=== PATIENT | female | born 1980 | race Caucasian/White ===

== ENCOUNTER 2017-06-23 12:44 | Outpatient (CLI) | payer MEDICAID ==
--- NOTE | 2017-06-23 13:39 | Mammography Report ---
DIGITAL BILATERAL DIAGNOSTIC MAMMOGRAM: 06/23/2017 CLINICAL INDICATION: Followup right breast calcifications, bilateral lateral breast pain. TECHNIQUE: Bilateral CC, MLO, true lateral views, right spot magnification views. The patient describ ed the pain as throughout the lateral half of each breast, so no markers were placed. COMPARISON: 10/07/2016, 03/20/2016. FINDINGS: The breasts again demonstrate heterogeneously dense fibroglandular parenchyma bilaterally. The calcifications in question, in the right upper outer quadrant, remain punctate on spot magnifica tion views. No developing pleomorphism is seen. No suspicious masses or regions of architectural dist ortion are identified. IMPRESSION: PROBABLE BENIGN CALCIFICATIONS. RECOMMENDATION: DIAGNOSTIC RIGHT MAMMOGRAM IN SIX MONTHS, TO ASSURE STABILITY. BIRADS CATEGORY 3-PROBABLE BENIGN FINDINGS. STANDARD QUALIFYING STATEMENTS 1. This examination was reviewed with the aid of Computer-Aided Detection (CAD). 2. A negative or benign imaging report should not delay biopsy if clinically suspicious findings are present. Consider surgical consultation if warranted. More than 5% of cancers are not identified by i maging. 3. Dense breasts may obscure an underlying neoplasm. JOB #: [id number] EXT JOB #:[id number]
== END 2017-06-23 12:45 | disposition home or self-care (01) ==
LOC: DI 12:44
PROVIDERS: ATTEND Family Medicine
DX: R92.1 Mammographic calcification found on diagnostic imaging of breast (principal)
CPT/HCPCS: 77066

== ENCOUNTER 2018-01-12 12:53 | Outpatient (CLI) | payer MEDICAID ==
--- NOTE | 2018-01-12 14:19 | Mammography Report ---
DIAGNOSTIC RIGHT MAMMOGRAM: 01/12/2018 CLINICAL INDICATION: Followup calcifications. TECHNIQUE: Right CC, MLO, true lateral, spot magnification views. COMPARISON: 06/23/2017, 10/07/2016, 03/20/2016. FINDINGS: The right breast again demonstrates heterogeneously dense fibroglandular parenchyma. The calcifications in question, in the right upper outer quadrant, remain punctate on spot magnification views. No developing pleomorphism is seen. Other punctate, typically benign calcifications are stable. IMPRESSION: PROBABLE BENIGN CALCIFICATIONS. RECOMMENDATION: Diagnostic bilateral mammogram in 6 months, to complete 2 years of surveillance. BIRADS CATEGORY 3 - PROBABLE BENIGN FINDINGS. STANDARD QUALIFYING STATEMENTS: 1. This examination was reviewed with the aid of Computer-Aided Detection (CAD). 2. A negative or benign imaging report should not delay biopsy if clinically suspicious findings are present. Consider surgical consultation if warranted. More than 5% of cancers are not identified by imaging. 3. Dense breasts may obscure an underlying neoplasm. TD: 01/12/2018 14:18
== END 2018-01-12 12:54 | disposition home or self-care (01) ==
LOC: DI 12:53
PROVIDERS: ATTEND Family Medicine
DX: R92.1 Mammographic calcification found on diagnostic imaging of breast (principal)

== ENCOUNTER 2018-10-27 09:01 | Outpatient (CLI) | payer MEDICAID ==
--- NOTE | 2018-10-27 15:27 | Mammography Report ---
Reason: SIX MONTH FOLLOW UP FOR CALCIFICATIONS Procedure Date: 10/27/2018 Accession Number: [id number] / [id number] Procedure: KORY - Diagnostic Dig Bilat CPT Code: FULL RESULT: EXAM: Diagnostic Dig Bilat DATE: 10/27/2018 10:17 AM CLINICAL HISTORY: Diagnostic mammogram. Follow-up of right breast calcifications. TECHNIQUE: Bilateral CC and MLO views were obtained. The right breast was also imaged and ML position and right spot magnified CC and MLO views were obtained. COMPARISON: 01/12/2018 through 03/20/2016. FINDINGS: The breasts demonstrate heterogeneously dense fibroglandular parenchyma bilaterally. The calcifications under surveillance in the right upper outer quadrant remain punctate without increasing architectural distortion or development of an associated mass when accounting for differences in technique, probably benign. No increasing pleomorphism is identified. No suspicious mass, left breast calcifications or architectural distortion is identified. IMPRESSION: Probable benign findings RECOMMENDATION: Recommend diagnostic right mammogram in 6 months. BIRADS CATEGORY 3 STANDARD QUALIFYING STATEMENTS: 1. This examination was not reviewed with the aid of Computer-Aided Detection (CAD). 2. A negative or benign imaging report should not delay biopsy if clinically suspicious findings are present. Consider surgical consultation if warrented. More than 5% of cancers are not identified by imaging. 3. Dense breasts may obscure an underlying neoplasm. 4. This examination was reviewed with the aid of 3D imaging (tomography).
== END 2018-10-27 09:02 | disposition home or self-care (01) ==
LOC: DI 09:01
PROVIDERS: ATTEND Family Medicine
DX: N64.89 Other specified disorders of breast (principal)
CPT/HCPCS: 77066

== ENCOUNTER 2019-11-17 13:15 | Outpatient (CLI) | payer MEDICAID ==
--- NOTE | 2019-11-17 15:52 | Mammography Report ---
Reason: 6 MONTH F U DIAGNOSTIC MAMMO Procedure Date: 11/17/2019 Accession Number: [id number] / [id number] Procedure: KORY - Diagnostic Dig Bilat CPT Code: Final Report FULL RESULT: EXAM: Diagnostic Dig Bilat DATE: 11/17/2019 2:08 PM CLINICAL HISTORY: Diagnostic examination. Follow-up right breast calcifications. TECHNIQUE: (B) - Bilateral CC and MLO views were obtained. Right spot magnified CC and right spot magnified ML images are obtained. COMPARISON: 10/27/2018 through 03/20/2016. PARENCHYMAL PATTERN: (D) - The breast(s) demonstrate(s) heterogeneously dense fibroglandular parenchyma. FINDINGS: Spot magnified images of the right breast axillary tail region focused on the previously followed grouping of calcification demonstrate no suspicious interval change, long-term stability, typically benign. There are no suspicious masses, calcifications, or areas of distortion. IMPRESSION: Benign findings. BI-RADS category 2. RECOMMENDATION: (ANNUAL) - Recommend routine annual screening mammography. BI-RADS CATEGORY: (2) - Benign Findings. STANDARD QUALIFYING STATEMENTS: 1. This examination was not reviewed with the aid of Computer-Aided Detection (CAD). 2. A negative or benign imaging report should not preclude biopsy if clinically suspicious findings are present. 3. Dense breasts may obscure an underlying neoplasm. 4. This examination was reviewed with the aid of 3D breast imaging (tomosynthesis).
== END 2019-11-17 13:16 | disposition home or self-care (01) ==
LOC: DI 13:15
PROVIDERS: ATTEND Family Medicine
DX: N63.10 Unspecified lump in the right breast, unspecified quadrant (principal); R92.8 Other abnormal and inconclusive findings on diagnostic imaging of breast
CPT/HCPCS: 77066

== ENCOUNTER 2020-11-11 11:12 | Emergency (ER) | payer MEDICAID ==
--- NOTE | 2020-11-11 11:45 | ED Physician Documentation ---
PD HPI LOWER EXT INJURY - Stated complaint Stated Complaint: RT KNEE PX, BRUISING - Chief complaint Chief Complaint: Ext Problem - History obtained from History obtained from: Patient - Additional information Additional information: Earlier last week she fell while running, she was distracted by something and kind of stepped off the pavement inverting her left ankle and landing on her right knee. She has persistent pain especially of the knee. 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 - Present Medications Home Medications: Ambulatory Orders Medication Instructions Recorded Confirmed Ibuprofen [Motrin] 400 mg PO Q8H PRN 11/11/20 11/11/20 - Allergies Allergies/Adverse Reactions: Allergies Allergy/AdvReac Type Severity Reaction Status Date / Time codeine Allergy Unknown Verified 11/11/20 11:21 - Social History Does the pt smoke?: No Smoking Status: Never smoker Does the pt drink ETOH?: Yes ETOH Use: Wine Does the pt have substance abuse?: Yes Substance Use and Type: Marijuana - Immunizations Immunizations are current?: Yes - POLST Patient has POLST: No PD ED PE NORMAL - Vitals Vital signs reviewed: Yes - General General: Alert and oriented X 3, No acute distress - HEENT HEENT: PERRL, EOMI - Neck Neck: No bony TTP - Extremities Extremities: Other (see MDM - txt box too small) - Neuro Neuro: Alert and oriented X 3, Normal speech - Psych Psych: Normal mood, Normal affect Results - Vitals Vitals: Vital Signs - 24 hr 11/11/20 11:17 Temperature 36.5 C Heart Rate 73 Respiratory 16 Rate Blood Pressure 153/72 H O2 Saturation 99 Oxygen O2 Source Room air - Rads (name of study) X-rays of the right knee and left ankle Radiology: EMP read contemporaneously (Mild medial compartment osteoarthritis of the right knee, no fractures) PD MEDICAL DECISION MAKING - ED course ED course: Ecchymosis with a small abrasion over the anterior part of the right knee with mild tenderness at the insertion of the quadricep onto the patella. There is small effusion. No laxity of the ACL, PCL, LCL, MCL. Negative grind testing. Quadricep function is normal. She also has bruising about the left ankle and dependent into the foot. She is tender over both malleoli of the left ankle. Departure - Departure Disposition: 01 Home, Self Care Clinical Impression: Left ankle sprain Qualifiers: Involved ligament of ankle: anterior talofibular ligament Right knee sprain Qualifiers: Encounter type: initial encounter Involved ligament of knee: unspecified ligament Qualified Code(s): S83.91XA - Sprain of unspecified site of right knee, initial encounter Condition: Stable Record reviewed to determine appropriate education?: Yes Instructions: ED Sprain Knee, ED Sprain Ankle W X Ray Comments: Follow-up with your doctor if not better in a week. Return for new or worsening symptoms. Tylenol or ibuprofen as needed for pain.
--- NOTE | 2020-11-11 12:14 | XRAY Report ---
PROCEDURE: Knee 4 View RT INDICATIONS: knee/ankle inj TECHNIQUE: 4 views of the right knee(s) were acquired. COMPARISON: None. FINDINGS: Bones: No fractures or dislocations. Mild medial femoral tibial compartment osteoarthritis is seen. No suspicious bony lesions. Soft tissues: No joint effusion. No suspicious soft tissue calcifications. IMPRESSION: No acute right knee fracture or dislocation. Mild medial femoral tibial compartment oste oarthritis. No significant joint effusion. Reviewed by: Angel Lam MD on 11/11/2020 12:13 PM PST Approved by: Angel Lam MD on 11/11/2020 12:13 PM PST Station ID: [id number]
--- NOTE | 2020-11-11 12:15 | XRAY Report ---
PROCEDURE: Ankle 3 View LT INDICATIONS: knee/ankle inj TECHNIQUE: 3 views of the ankle were acquired. COMPARISON: None FINDINGS: Bones: No fractures or dislocations. Ankle mortise is normally aligned. No suspicious bony lesions . Soft tissues: No tibiotalar joint effusion. Achilles tendon appears normal. Mild ankle soft tissue swelling is noted. IMPRESSION: No gross acute ankle fracture or dislocation. Ankle mortise is intact. Mild ankle soft t issue swelling. Reviewed by: Angel Lam MD on 11/11/2020 12:13 PM PST Approved by: Angel Lam MD on 11/11/2020 12:13 PM PST Station ID: [id number]
[2020-11-11 12:35] VITALS: BP 131/73
== END 2020-11-11 12:44 | disposition home or self-care (01) ==
LOC: ED 11:12
DX: S83.91XA Sprain of unspecified site of right knee, initial encounter (principal); S93.492A Sprain of other ligament of left ankle, initial encounter; S80.01XA Contusion of right knee, initial encounter; S80.211A Abrasion, right knee, initial encounter; S90.02XA Contusion of left ankle, initial encounter; W01.0XXA Fall on same level from slipping, tripping and stumbling without subsequent striking against object, initial encounter; Y93.02 Activity, running; Y92.480 Sidewalk as the place of occurrence of the external cause; M17.11 Unilateral primary osteoarthritis, right knee
CPT/HCPCS: 99283

== ENCOUNTER 2021-02-14 10:28 | Outpatient (CLI) | payer MEDICAID ==
--- NOTE | 2021-02-14 11:37 | XRAY Report ---
PROCEDURE: Cervical Spine 2 View INDICATIONS: NECK PAIN TECHNIQUE: 3 view(s) of the cervical spine were acquired. COMPARISON: None. FINDINGS: Straightening of the normal lordotic curvature. Moderate narrowing of the C4-C5 and C5-C6 disc spaces . Multilevel spondylytic/degenerative endplate changes. Diffuse facet arthropathy. Soft tissues: No prevertebral soft tissue swelling. IMPRESSION: Straightening of the normal cervical lordosis and multilevel moderate spondylosis, and f acet arthropathy. Reviewed by: Levar Leon MD on 02/14/2021 11:35 AM PDT Approved by: Levar Leon MD on 02/14/2021 11:35 AM PDT Station ID: [id number]
== END 2021-02-14 10:29 | disposition home or self-care (01) ==
LOC: DI 10:28
PROVIDERS: ATTEND Family Medicine
DX: M47.812 Spondylosis without myelopathy or radiculopathy, cervical region (principal)

== ENCOUNTER 2021-03-20 09:13 | Outpatient (CLI) | payer MEDICAID ==
--- NOTE | 2021-03-21 11:57 | Ultrasound Report ---
LIMITED ULTRASOUND OF RIGHT BREAST: 03/20/2021 CLINICAL: Palpable right breast lump. Comparison is made to exams dated: 03/20/2021 mammogram, 11/17/2019 mammogram, 10/27/2018 mammogram, 12/17 mammogram, 06/23/2017 mammogram, and 10/07/2016 mammogram - [facility]. Color flow ultrasound of the right breast 9 o'clock region was performed. Garg scale images of the r eal-time examination were reviewed. There is a 2.7 cm x 2.4 cm x 1.9 cm oval cyst in the right breast at 9 o'clock middle depth 4 cm from the nipple. This oval cyst is anechoic with posterior acoustic enhancement. This correlates as pal pated and with mammography findings. Color flow imaging demonstrates that there is no vascularity pr esent. IMPRESSION: BENIGN There is no sonographic evidence of malignancy. The 2.7 cm cyst in the right breast is consistent with a simple cyst and is benign. Return to annual mammogram screening schedule is recommended. Findings and recommendations were conveyed to the patient at time of exam. This exam was interpreted at Station ID: [id number]. Electronically Signed By: Puja vines/:03/20/2021 10:52:52 Ultrasound BI-RADS: 2 Benign BI-RADS CATEGORY: (2) - 2 RECOMMENDATION: (ANNUAL) - Recommend routine annual screening mammography. [id number] return to screening LATERALITY: (B)
--- NOTE | 2021-03-21 11:57 | Mammography Report ---
BILATERAL DIGITAL DIAGNOSTIC MAMMOGRAM 3D/2D: 03/20/2021 CLINICAL: Palpable right breast lump. Comparison is made to exams dated: 11/17/2019 mammogram, 10/27/2018 mammogram, 01/12/2018 mammogram, 06/23/2017 mammogram, 10/07/2016 mammogram, and 03/20/2016 mammogram - [facility]. The t issue of both breasts is extremely dense, which lowers the sensitivity of mammography. There is a 1.9 cm round equal density asymmetry with a circumscribed margin in the right breast at 9 o'clock anterior depth. This is seen in additional views. This is more prominent. Several other ci rcumscribed asymmetries are present in the breasts and are stable. No other significant masses, calcifications, or other findings are seen in either breast. IMPRESSION: INCOMPLETE: NEEDS ADDITIONAL IMAGING EVALUATION The 1.9 cm round equal density asymmetry in the right breast most likely is a cyst or a fibroadenoma but remains indeterminate. An ultrasound is recommended. This was performed immediately following this exam. This exam was interpreted at Station ID: [id number]. NOTE: For mammograms, a report in lay terms will be sent to the patient. Approximately 15% of breast malignancies will not be visualized mammographically. In the management of a palpable breast mass, a negative mammogram must not discourage biopsy of a clinically suspicious lesion. Electronically Signed By: Puja vines/:03/20/2021 10:31:50 ACR BI-RADS Category 0: Incomplete 3340F PARENCHYMAL PATTERN: (VD) - The breast(s) demonstrate(s) extremely dense parenchyma, limiting the sen sitivity of mammography. BI-RADS CATEGORY: (0) - 0 Ultrasound [id number] Immediate follow-up LATERALITY: (B)
== END 2021-03-20 09:14 | disposition home or self-care (01) ==
LOC: DI 09:13
PROVIDERS: ATTEND Family Medicine
DX: N60.01 Solitary cyst of right breast (principal)

== ENCOUNTER 2022-04-21 07:02 | Outpatient (CLI) | payer MEDICAID ==
[2022-04-21 14:34] LABS: BASOPHILS % (AUTO) 0.8 %; EOSINOPHILS # (AUTO) 0.1 10^3/uL (0.0-0.7); EOSINOPHILS % (AUTO) 2.3 %; HCT - HEMATOCRIT 42.4 % (37.0-47.0); HGB - HEMOGLOBIN 13.8 g/dL (12.0-16.0); LYMPHOCYTES # (AUTO) 1.6 10^3/uL (1.5-3.5); LYMPHOCYTES % (AUTO) 30.5 %; MEAN CORPUSCULAR HGB CONC 32.5 g/dL (32.0-36.0); MEAN CORPUSCULAR VOLUME 92.2 fL (81.0-99.0); MEAN PLATELET VOLUME 9.4 fL (7.9-10.8); MONOCYTES # (AUTO) 0.7 10^3/uL (0.0-1.0); MONOCYTES % (AUTO) 13.1 %; NEUTROPHILS # (AUTO) 2.7 10^3/uL (1.5-6.6); NEUTROPHILS % (AUTO) 52.9 %; PLT - PLATELET COUNT 365 10^3/uL (130-450); RED CELL DISTRIBUTION WIDTH 13.3 % (12.0-15.0); WHITE BLOOD COUNT 5.1 x10^3/uL (4.8-10.8)
[2022-04-21 15:21] LABS: T4 (THYROXINE) 6.64 ug/dL (6.09-12.23)
[2022-04-21 15:24] LABS: ALBUMIN 3.8 g/dL (3.2-5.5); ALBUMIN/GLOBULIN RATIO 1.2 (1.0-2.2); ALKALINE PHOSPHATASE 46 IU/L (42-121); ALT ALANINE AMINOTRANSFERASE 16 IU/L (10-60); AST ASPARTATE AMINOTRANSFERASE 16 IU/L (10-42); BILIRUBIN,TOTAL 0.8 mg/dL (0.2-1.0); BUN - BLOOD UREA NITROGEN 13 mg/dL (6-20); CALCIUM 9.3 mg/dL (8.5-10.3); CARBON DIOXIDE - CO2 28 mmol/L (21-32); CHLORIDE 100 mmol/L (101-111); CHOL/HDL RATIO 2.5 (<4.4); CHOLESTEROL 218 mg/dL; CREATININE 0.7 mg/dL (0.4-1.0); GFR - MDRD 92 (>89); GLUCOSE 102 mg/dL (70-100); HDL CHOLESTEROL 88 mg/dL; LDL CHOLESTEROL,CALCULATED 118 mg/dL; LDL/HDL RATIO 1.3 (<4.4); MAGNESIUM 1.7 mg/dL (1.7-2.8); POTASSIUM 4.5 mmol/L (3.5-5.0); SODIUM 136 mmol/L (135-145); TRIGLYCERIDES 60 mg/dL; VLDL CHOLESTEROL 12 mg/dL
[2022-04-21 15:25] LABS: THYROID STIMULATING HORMONE 1.87 uIU/mL (0.34-5.60)
== END 2022-04-21 07:03 | disposition home or self-care (01) ==
LOC: LAB.S 07:02
PROVIDERS: ATTEND Family Medicine
DX: F33.1 Major depressive disorder, recurrent, moderate (principal); Z79.899 Other long term (current) drug therapy; M12.89 Other specific arthropathies, not elsewhere classified, multiple sites; F41.3 Other mixed anxiety disorders; R60.9 Edema, unspecified; I88.9 Nonspecific lymphadenitis, unspecified
CPT/HCPCS: 36415; 80053; 80061; 82306; 82607; 83721; 83735; 84436; 84443; 85025

== ENCOUNTER 2022-06-16 12:32 | Outpatient (CLI) | payer MEDICAID ==
--- NOTE | 2022-06-17 11:10 | Mammography Report ---
BILATERAL DIGITAL DIAGNOSTIC MAMMOGRAM 3D/2D: 06/16/2022 CLINICAL: Patient returns for a 6 month follow up of the right breast, due for bilateral exam. New/wo rsening Diffuse right breast pain from nipple to axilla. Comparison is made to exams dated: 03/20/2021 mammogram, 11/17/2019 mammogram, 10/27/2018 mammogram, 12/17 mammogram, and 06/23/2017 mammogram - [facility]. Both breasts are extremely dense, which lowers the sensitivity of mammography (category d />75% glan dular tissue). There are numerous partially obscured and partially circumscribed asymmetries of vary ing sizes bilaterally. No dominant or larger asymmetry to explain pain. No significant masses, calcifications, or other findings are seen in either breast. Mammograms are s table. IMPRESSION: INCOMPLETE: NEEDS ADDITIONAL IMAGING EVALUATION There is no distinct abnormality seen in the right breast to correspond with the diffuse pain in the upper outer quadrant which is most consistent with fibrocystic change, however, ultrasound is recomme nded. This was performed immediately following this exam. This exam was interpreted at Station ID: [id number]. NOTE: For mammograms, a report in lay terms will be sent to the patient. Approximately 15% of breast malignancies will not be visualized mammographically. In the management of a palpable breast mass, a negative mammogram must not discourage biopsy of a clinically suspicious lesion. Electronically Signed By: Puja vines/:06/16/2022 15:00:45 ACR BI-RADS Category 0: Incomplete 3340F PARENCHYMAL PATTERN: (VD) - The breast(s) demonstrate(s) extremely dense parenchyma, limiting the sen sitivity of mammography. BI-RADS CATEGORY: (0) - 0 Ultrasound [id number] Immediate follow-up LATERALITY: (B)
--- NOTE | 2022-06-17 11:10 | Ultrasound Report ---
LIMITED ULTRASOUND OF RIGHT BREAST AND AXILLA: 06/16/2022 CLINICAL: Diffuse right breast pain... specifically ruoq into rt axilla. Constant per pt.. Comparison is made to exams dated: 06/16/2022 mammogram, 03/20/2021 ultrasound, 03/20/2021 mammogram, 10/20 mammogram, 10/27/2018 mammogram, and 01/12/2018 mammogram - [facility]. Color flow and real-time ultrasound of the right breast upper outer quadrant and axilla regions were performed. Garg scale images of the real-time examination were reviewed. In addition, there is a benign 1.8 cm x 1.6 cm x 0.8 cm oval cyst in the right breast at 9 o'clock mi ddle depth 5 cm from the nipple. This oval cyst is anechoic. This correlates to the reported pain. Color flow imaging demonstrates that there is no vascularity present. There is a 0.8 cm x 1 cm x 0.4 cm oval mass with a circumscribed margin in the right breast at 10 o'c lock posterior depth 6 cm from the nipple. This oval mass is hypoechoic with an abrupt boundary and no posterior acoustic shadowing or enhancement. This correlates as an incidental finding. Color ashley w imaging demonstrates that there is no vascularity present. There also is a 1.2 cm x 0.8 cm x 0.7 cm cluster of irregular cysts in the right breast at 11 o'clock middle depth 4 cm from the nipple. This cluster of irregular cysts is hypoechoic. This correlates as an incidental finding. Color flow imaging demonstrates that there is no vascularity present. Additionally, there is a 1.8 cm x 1 cm x 0.6 cm oval cyst with a septated internal wall in the right breast at 12 o'clock anterior depth 3 cm from the nipple. This oval cyst is anechoic with posterior acoustic enhancement. This correlates as an incidental finding. Color flow imaging demonstrates andrea t there is no vascularity present. In addition, there is a 0.6 cm x 1.1 cm x 0.6 cm oval cyst with a thickened wall in the right breast at 12 o'clock anterior depth 3 cm from the nipple. This oval cyst is of mixed echogenicity. This co rrelates as an incidental finding. Color flow imaging demonstrates that there is no vascularity pres ent. No significant abnormalities were seen sonographically in the right axilla. IMPRESSION: PROBABLY BENIGN The 1.8 cm x 1.6 cm x 0.8 cm oval cyst in the right breast at 9 o'clock middle depth corresponds to t he patients pain, is consistent with a simple cyst and is benign. The 0.8 cm x 1 cm x 0.4 cm oval mass in the right breast at 10 o'clock posterior depth most likely is a fibroadenoma and is probably benign. The 1.2 cm x 0.8 cm x 0.7 cm cluster of irregular cysts in the right breast at 11 o'clock middle dept h has a differential diagnosis of apocrine metaplasia or a complicated cyst and is probably benign. The 1.8 cm x 1 cm x 0.6 cm oval cyst in the right breast at 12 o'clock anterior depth most likely is a complicated cyst and is probably benign. The 0.6 cm x 1.1 cm x 0.6 cm oval cyst in the right breast at 12 o'clock anterior depth is consistent with a complicated cyst and is probably benign. A follow-up right mammogram and an ultrasound in 6 months is recommended to demonstrate stability of the second through fifth lesion. Findings and recommendations were conveyed to the patient at time o f exam. This exam was interpreted at Station ID: [id number]. Electronically Signed By: Puja vines/:06/16/2022 15:07:50 Ultrasound BI-RADS: 3 Probably benign BI-RADS CATEGORY: (3) - 3 Mammo and [place] [id number] 6 month follow-up LATERALITY: (R)
== END 2022-06-16 12:33 | disposition home or self-care (01) ==
LOC: DI 12:32
PROVIDERS: ATTEND Family Medicine
DX: N60.11 Diffuse cystic mastopathy of right breast (principal); R92.8 Other abnormal and inconclusive findings on diagnostic imaging of breast

== ENCOUNTER 2023-03-02 12:59 | Outpatient (CLI) | payer MEDICAID ==
--- NOTE | 2023-03-03 12:46 | Mammography Report ---
UNILATERAL RIGHT DIGITAL DIAGNOSTIC MAMMOGRAM 3D/2D: 03/02/2023 CLINICAL: Patient returns for a 6 month follow up of the right breast. Comparison is made to exams dated: 06/16/2022 mammogram, 03/20/2021 mammogram, 11/17/2019 mammogram, 10/18 mammogram, 01/12/2018 mammogram, and 06/23/2017 mammogram - [facility]. The right breast is extremely dense, which lowers the sensitivity of mammography (category d />75% gl andular tissue). Numerous well circumscribed asymmetries are present in the right breast corresponding to several cyst ic lesions seen on ultrasound. No new suspicious changes. No significant masses, calcifications, or other findings are seen in the breast. IMPRESSION: INCOMPLETE: NEEDS ADDITIONAL IMAGING EVALUATION No changes to right breast mammogram. Ultrasound is recommended to further characterize known cystic lesions, and document stability. This was performed immediately following this exam. Based on the Tyrer Cuzick model (a risk assessment model) the patients lifetime risk is 19.8% and he r 10 year risk is 3.4%. According to the ACR, ACS, and NCCN guidelines, an annual breast MRI exam kwame ng with mammogram is recommended if the patients lifetime risk is 20% or greater. This exam was interpreted at Station ID: [id number]. NOTE: For mammograms, a report in lay terms will be sent to the patient. Approximately 15% of breast malignancies will not be visualized mammographically. In the management of a palpable breast mass, a negative mammogram must not discourage biopsy of a clinically suspicious lesion. Electronically Signed By: Puja vines/:03/02/2023 13:41:05 letter sent: No_Letter ACR BI-RADS Category 0: Incomplete 3340F PARENCHYMAL PATTERN: (VD) - The breast(s) demonstrate(s) extremely dense parenchyma, limiting the sen sitivity of mammography. BI-RADS CATEGORY: (0) - 0 Ultrasound [id number] Immediate follow-up LATERALITY: (B)
--- NOTE | 2023-03-03 12:46 | Ultrasound Report ---
LIMITED ULTRASOUND OF RIGHT BREAST: 03/02/2023 CLINICAL: Short term follow up of the right breast. Comparison is made to exams dated: 03/02/2023 mammogram, 06/16/2022 ultrasound, 06/16/2022 mammogram, ultrasound, and 03/20/2021 mammogram - [facility]. Color flow ultrasound of the right breast 9-12 o'clock region was performed. Garg scale images of th e real-time examination were reviewed. There is a 1 cm x 1.2 cm x 0.5 cm oval mass with a circumscribed margin in the right breast at 10 o'c lock posterior depth 6 cm from the nipple. This oval mass is hypoechoic with an abrupt boundary and no posterior acoustic shadowing or enhancement. This abnormality is increased in size and correlates as an incidental finding. Color flow imaging demonstrates that there is no vascularity present. There also is a 0.5 cm x 0.4 cm x 0.4 cm cluster of irregular cysts in the right breast at 11 o'clock middle depth 4 cm from the nipple. This cluster of irregular cysts is hypoechoic. These abnormalit ies are decreased in size and correlates as an incidental finding. Color flow imaging demonstrates t hat there is no vascularity present. Additionally, there is a 1.3 cm x 1 cm x 0.4 cm oval cyst with a septated internal wall in the right breast at 12 o'clock anterior depth 3 cm from the nipple. This oval cyst is hypoechoic with posterio r acoustic enhancement. This abnormality is decreased in size and correlates as an incidental findin g. Color flow imaging demonstrates that there is no vascularity present. In addition, there is a 0.6 cm x 1.1 cm x 0.6 cm oval cyst with a thickened wall in the right breast at 12 o'clock anterior depth 3 cm from the nipple. This oval cyst is of mixed echogenicity. This co rrelates as an incidental finding. Color flow imaging demonstrates that there is no vascularity pres ent. In addition, there is a benign 2.4 cm x 1.9 cm x 1.1 cm oval cyst in the right breast at 9 o'clock mi ddle depth 5 cm from the nipple. This oval cyst is anechoic. This abnormality is increased in size. Color flow imaging demonstrates that there is no vascularity present. IMPRESSION: PROBABLY BENIGN The 1 cm x 1.2 cm x 0.5 cm oval mass in the right breast at 10 o'clock posterior depth has slightly i ncreased in size, but is most likely a fibroadenoma and is probably benign. No other significant changes other than mild size decrease in several complicated cysts in the upper outer quadrant. A follow-up right ultrasound in 6 months is recommended to demonstrate stability of the solid mass an d complicated cysts. Findings and recommendations were conveyed to the patient at time of exam. This exam was interpreted at Station ID: [id number]. Electronically Signed By: Puja vines/:03/02/2023 15:50:59 Ultrasound BI-RADS: 3 Probably benign BI-RADS CATEGORY: (3) - 3 Ultrasound [id number] 6 month follow-up LATERALITY: (R)
== END 2023-03-02 13:00 | disposition home or self-care (01) ==
LOC: DI 12:59
PROVIDERS: ATTEND Family Medicine
DX: N63.11 Unspecified lump in the right breast, upper outer quadrant (principal); N60.11 Diffuse cystic mastopathy of right breast

== ENCOUNTER 2023-08-26 13:02 | Outpatient (CLI) | payer BC ==
[2023-08-26 14:50] LABS: BASOPHILS % (AUTO) 0.6 %; EOSINOPHILS # (AUTO) 0.1 10^3/uL (0.0-0.7); EOSINOPHILS % (AUTO) 2.3 %; HCT - HEMATOCRIT 44.3 % (37.0-47.0); HGB - HEMOGLOBIN 14.2 g/dL (12.0-16.0); LYMPHOCYTES # (AUTO) 1.8 10^3/uL (1.5-3.5); LYMPHOCYTES % (AUTO) 34.5 %; MEAN CORPUSCULAR HEMOGLOBIN 29.5 pg (27.0-31.0); MEAN CORPUSCULAR HGB CONC 32.1 g/dL (32.0-36.0); MEAN CORPUSCULAR VOLUME 91.9 fL (81.0-99.0); MEAN PLATELET VOLUME 9.9 fL (7.9-10.8); MONOCYTES # (AUTO) 0.6 10^3/uL (0.0-1.0); MONOCYTES % (AUTO) 11.5 %; NEUTROPHILS # (AUTO) 2.7 10^3/uL (1.5-6.6); NEUTROPHILS % (AUTO) 50.7 %; PLT - PLATELET COUNT 340 10^3/uL (130-450); RED BLOOD COUNT 4.82 10^6/uL (4.20-5.40); RED CELL DISTRIBUTION WIDTH 13.2 % (12.0-15.0); WHITE BLOOD COUNT 5.3 x10^3/uL (4.8-10.8)
[2023-08-26 15:03] LABS: ESTIMATED AVERAGE GLUCOSE 97 mg/dL (70-100)
[2023-08-26 15:21] LABS: THYROID STIMULATING HORMONE 1.24 uIU/mL (0.34-5.60)
[2023-08-26 15:28] LABS: FERRITIN 42.9 ng/mL (11.0-306.8)
[2023-08-26 16:15] LABS: ALBUMIN 4.4 g/dL (3.2-5.5); ALBUMIN/GLOBULIN RATIO 1.5 (1.0-2.2); BILIRUBIN,TOTAL 0.6 mg/dL (0.2-1.0); CALCIUM 9.8 mg/dL (8.5-10.3); CREATININE 0.8 mg/dL (0.6-1.3); POTASSIUM 5.1 mmol/L (3.5-4.5); TOTAL PROTEIN 7.4 g/dL (6.4-8.9)
== END 2023-08-26 13:03 | disposition home or self-care (01) ==
LOC: LAB.S 13:02
PROVIDERS: ATTEND Internal Medicine
DX: R45.89 Other symptoms and signs involving emotional state (principal); E28.319 Asymptomatic premature menopause
CPT/HCPCS: 36415; 80053; 82728; 83036; 83540; 84439; 84443; 84466; 84481; 85025